=== PATIENT | female | born 1970 | race Caucasian/White ===

== ENCOUNTER 2017-07-17 18:38 | Emergency (ER) | payer OTHER ==
[~2017-07-17] VITALS: Ht 165.1 cm; Wt 51.2 kg
[~2017-07-17 18:38] MED LIST: DURAGESIC100 MCG/HR TOP; ELAVIL25 MG PO; ESTRADIOL TD; FENTANYL TR25 MCG/H1 TOP; FLO4 PO; KEFLEX500 MG PO; LAC PO; LACTULOSE10 GM/152 PO; LINZESS145 MC1 PO; MAC100 PO; MOVANTIK12.5 MG PO; MS CONTIN100 MG PO; MSC100 PO; OXY20 PO; PHENERGAN25 M2 PO; SENOKOT NATURA8.6 M1 PO; ZOF4 PO; [UNRECOGNIZED DRUG - OTHER]
[2017-07-18 02:13] VITALS: BP 126/81
== END 2017-07-18 02:00 | disposition home or self-care (01) ==
LOC: ED 18:38
DX: R10.9 Unspecified abdominal pain (principal); J45.909 Unspecified asthma, uncomplicated; E11.9 Type 2 diabetes mellitus without complications; Z90.710 Acquired absence of both cervix and uterus; Z90.89 Acquired absence of other organs; Z90.49 Acquired absence of other specified parts of digestive tract; Z88.0 Allergy status to penicillin; Z88.1 Allergy status to other antibiotic agents; Z88.6 Allergy status to analgesic agent
CPT/HCPCS: J2270; J2405; J3010; J7030

== ENCOUNTER 2017-08-13 05:28 | Emergency (ER) | payer OTHER ==
[2017-08-13 06:48] LABS: BASOPHIL % 0.5 % (0-2)
[2017-08-13 07:06] LABS: PLATELET COUNT 296 x10^3mcL (130-400)
[2017-08-13 07:16] LABS: CALCIUM 8.7 mg/dL (8.5-10.1); CARBON DIOXIDE 27.3 mmol/L (21-32); CHLORIDE SERUM 105 mmol/L (98-107); CREATININE SERUM 0.6 mg/dL (0.6-1.0); GFR1 > 60 mL/min; GLUCOSE SERUM 101 mg/dL (74-106); POTASSIUM SERUM 3.8 mmol/L (3.5-5.1); SODIUM SERUM 139 mmol/L (136-145)
[2017-08-13 07:47] LABS: UA SPECIFIC GRAVITY <=1.005 (1.005-1.035); microscopic required? YES; urine erythrocyte 1+ (NEGATIVE)
[2017-08-13 08:17] VITALS: BP 114/57
== END 2017-08-13 09:00 | disposition home or self-care (01) ==
LOC: ED 05:28
PROVIDERS: Emergency Medicine
DX: R10.32 Left lower quadrant pain (principal); R03.0 Elevated blood-pressure reading, without diagnosis of hypertension; J45.909 Unspecified asthma, uncomplicated; E11.9 Type 2 diabetes mellitus without complications; Z90.710 Acquired absence of both cervix and uterus; I49.9 Cardiac arrhythmia, unspecified; Z88.6 Allergy status to analgesic agent; Z88.1 Allergy status to other antibiotic agents; Z88.8 Allergy status to other drugs, medicaments and biological substances
CPT/HCPCS: J2270; J2765; J7030

== ENCOUNTER 2017-12-10 10:25 | Inpatient (IN) | payer OTHER ==
[~2017-12-10] VITALS: Ht 165.1 cm; Wt 49.9 kg
[2017-12-10 10:46] VITALS: Ht 165.1 cm; Wt 49.9 kg
[2017-12-10 11:53] LABS: BASOPHIL % 1.1 % (0-2); PLATELET COUNT 289 x10^3mcL (130-400); RED CELL DISTRIBUTION WIDTH 13.4 % (11.5-14.5)
[2017-12-10 11:59] LABS: CALCIUM 8.7 mg/dL (8.5-10.1); CARBON DIOXIDE 22.4 mmol/L (21-32); CHLORIDE SERUM 101 mmol/L (98-107); CREATININE SERUM 0.8 mg/dL (0.6-1.0); GFR1 > 60 mL/min; GLUCOSE SERUM 100 mg/dL (74-106); SODIUM SERUM 134 mmol/L (136-145)
[2017-12-10 12:04] LABS: ALKALINE PHOSPHATASE 50 U/L (46-116); ALT/SGPT 17 U/L (14-59); AST/SGOT 17 U/L (15-37); BILIRUBIN TOTAL 0.28 mg/dL (0.20-1.00); TOTAL PROTEIN, SERUM 7.2 g/dL (6.4-8.2)
[2017-12-10 13:23] LABS: microscopic required? YES; urine erythrocyte 3+ (NEGATIVE)
[2017-12-10] MEDS ORDERED: FENTANYL TR25 MCG/H1 TOP (14:16)
[2017-12-10] MEDS ORDERED: VIVELLE-DO0.025 MG/2 TD (14:17)
[2017-12-10 16:37] LABS: MAGNESIUM 2.3 mg/dL (1.8-2.4); PHOSPHOROUS 3.8 mg/dL (2.5-4.9)
[2017-12-10 16:41] LABS: CHOLESTEROL/HDL RATIO 1.9
[2017-12-10 16:43] LABS: AMPHETAMINE QUAL UR NONE DETECTED (NEG <=1000)
[2017-12-10 18:02] LABS: T3 TOTAL 1.11 ng/mL
[2017-12-10 18:03] LABS: FREE T4 0.93 ng/dL (0.76-1.46); FREE THYROXINE INDEX 2.4 ug/dL (1.4-4.5); T4(THYROXINE) 6.6 ug/dL (4.7-13.3)
[2017-12-10 18:15] VITALS: BP 110/59
[2017-12-10 20:03] LABS: IRON 105 ug/dL (50-170); TOTAL IRON BINDING CAPACITY 333 ug/dL (250-450)
[2017-12-11 09:21] VITALS: BP 101/50
[2017-12-11 12:54] VITALS: BP 88/53
[2017-12-11 13:28] LABS: BASOPHIL % 0.7 % (0-2); PLATELET COUNT 288 x10^3mcL (130-400)
[2017-12-11 13:50] LABS: RED BLOOD CELLS 3.44 M/mm3 (4.10-5.10)
[2017-12-11 13:51] LABS: CALCIUM 8.3 mg/dL (8.5-10.1); CARBON DIOXIDE 25.4 mmol/L (21-32); CHLORIDE SERUM 103 mmol/L (98-107); CREATININE SERUM 0.7 mg/dL (0.6-1.0); GFR1 > 60 mL/min; GLUCOSE SERUM 80 mg/dL (74-106); MAGNESIUM 2.2 mg/dL (1.8-2.4); PHOSPHOROUS 4.8 mg/dL (2.5-4.9); POTASSIUM SERUM 4.4 mmol/L (3.5-5.1); SODIUM SERUM 138 mmol/L (136-145)
[2017-12-11 16:31] VITALS: BP 92/55
[2017-12-11 19:40] VITALS: BP 101/52
[2017-12-12 05:32] VITALS: BP 110/65
[2017-12-12 08:50] VITALS: BP 114/71
[2017-12-12 16:12] VITALS: BP 115/66
[2017-12-12 20:45] VITALS: BP 97/57
[2017-12-13 05:35] VITALS: BP 106/56
[2017-12-13 09:39] VITALS: BP 93/50
[2017-12-13 10:11] VITALS: BP 90/59
[2017-12-13] MEDS ORDERED: ROBAXIN500 MG PO (13:52)
[2017-12-13 17:39] VITALS: BP 107/65
[2017-12-13 17:59] VITALS: BP 107/65
== END 2017-12-13 19:26 | disposition home or self-care (01) | DRG 563 ==
LOC: ED 10:25 → DU 14:44 → MU 12-11 19:01
PROVIDERS: Emergency Medicine; Family Medicine
DX: S39.012A Strain of muscle, fascia and tendon of lower back, initial encounter (principal); N10 Acute pyelonephritis; E87.1 Hypo-osmolality and hyponatremia; Z88.8 Allergy status to other drugs, medicaments and biological substances; J45.909 Unspecified asthma, uncomplicated; Z90.710 Acquired absence of both cervix and uterus; Z90.49 Acquired absence of other specified parts of digestive tract; Z82.49 Family history of ischemic heart disease and other diseases of the circulatory system; Z80.9 Family history of malignant neoplasm, unspecified; D64.9 Anemia, unspecified; E83.51 Hypocalcemia; K58.9 Irritable bowel syndrome, unspecified; G43.909 Migraine, unspecified, not intractable, without status migrainosus; R31.9 Hematuria, unspecified
CPT/HCPCS: 83880; 84439; J0696; J0780; J1100; J1200; J1642; J2270; J2550; J2800; J7030; Q0092; Q0169

== ENCOUNTER 2018-03-07 17:03 | Inpatient (IN) | payer OTHER ==
[~2018-03-07] VITALS: Ht 165.1 cm; Wt 51.9 kg
[~2018-03-07 17:03] MED LIST changes: +ROBAXIN500 MG PO; +VIVELLE-DO0.025 MG/2 TD
[2018-03-07 18:42] LABS: BASOPHIL % 0.6 % (0-2); PLATELET COUNT 272 x10^3mcL (130-400); RED CELL DISTRIBUTION WIDTH 13.8 % (11.5-14.5)
[2018-03-07 18:53] LABS: ALKALINE PHOSPHATASE 61 U/L (46-116); ALT/SGPT 8 U/L (14-59); AST/SGOT 15 U/L (15-37); BILIRUBIN TOTAL 0.24 mg/dL (0.20-1.00); CALCIUM 8.4 mg/dL (8.5-10.1); CARBON DIOXIDE 28.7 mmol/L (21-32); CHLORIDE SERUM 96 mmol/L (98-107); CREATININE SERUM 0.9 mg/dL (0.6-1.0); GFR1 > 60 mL/min; GLUCOSE SERUM 83 mg/dL (74-106); LIPASE 125 IU/L (73-393); SODIUM SERUM 131 mmol/L (136-145); TOTAL PROTEIN, SERUM 7.2 g/dL (6.4-8.2)
[2018-03-07 18:55] LABS: POTASSIUM SERUM 2.6 mmol/L (3.5-5.1)
[2018-03-07 19:45] LABS: T3 TOTAL 1.14 ng/mL
[2018-03-07 19:51] LABS: CHOLESTEROL/HDL RATIO 1.9; MAGNESIUM 2.4 mg/dL (1.8-2.4); PHOSPHOROUS 3.4 mg/dL (2.5-4.9)
[2018-03-07 19:57] VITALS: BP 103/68
[2018-03-07 20:04] LABS: FREE T4 1.15 ng/dL (0.76-1.46); FREE THYROXINE INDEX 3.6 ug/dL (1.4-4.5); T4(THYROXINE) 10.6 ug/dL (4.7-13.3)
[2018-03-08 06:48] VITALS: BP 88/57
[2018-03-08 08:09] LABS: BASOPHIL % 0.7 % (0-2); PLATELET COUNT 270 x10^3mcL (130-400); RED CELL DISTRIBUTION WIDTH 13.8 % (11.5-14.5)
[2018-03-08 08:21] LABS: CALCIUM 8.1 mg/dL (8.5-10.1); CARBON DIOXIDE 28.5 mmol/L (21-32); CHLORIDE SERUM 105 mmol/L (98-107); CREATININE SERUM 0.6 mg/dL (0.6-1.0); GFR1 > 60 mL/min; GLUCOSE SERUM 82 mg/dL (74-106); MAGNESIUM 2.4 mg/dL (1.8-2.4); PHOSPHOROUS 2.5 mg/dL (2.5-4.9); POTASSIUM SERUM 4.1 mmol/L (3.5-5.1); SODIUM SERUM 137 mmol/L (136-145)
[2018-03-08 08:42] VITALS: BP 100/46
[2018-03-08 13:15] VITALS: BP 91/54
[2018-03-08 17:30] VITALS: BP 104/64
[2018-03-08 17:45] VITALS: BP 104/64; BP 71/32
[2018-03-08 21:54] VITALS: BP 102/60
[2018-03-09 05:21] VITALS: BP 120/63
[2018-03-09 05:51] LABS: CALCIUM 8.2 mg/dL (8.5-10.1); CARBON DIOXIDE 24.7 mmol/L (21-32); CHLORIDE SERUM 107 mmol/L (98-107); CREATININE SERUM 0.7 mg/dL (0.6-1.0); GFR1 > 60 mL/min; GLUCOSE SERUM 120 mg/dL (74-106); POTASSIUM SERUM 4.1 mmol/L (3.5-5.1); SODIUM SERUM 139 mmol/L (136-145)
[2018-03-09 07:03] LABS: BASOPHIL % 0.3 % (0-2); PLATELET COUNT 282 x10^3mcL (130-400); RED CELL DISTRIBUTION WIDTH 14.4 % (11.5-14.5)
[2018-03-09 09:22] VITALS: BP 96/50
[2018-03-09 10:37] VITALS: BP 96/60
[2018-03-09 13:29] VITALS: BP 89/53
[2018-03-09 17:29] VITALS: BP 96/57
[2018-03-09 20:22] VITALS: BP 88/42
[2018-03-10 05:25] VITALS: BP 90/51
[2018-03-10 06:24] LABS: BASOPHIL % 0.7 % (0-2); PLATELET COUNT 236 x10^3mcL (130-400); RED CELL DISTRIBUTION WIDTH 14.3 % (11.5-14.5)
[2018-03-10 06:49] LABS: CALCIUM 7.9 mg/dL (8.5-10.1); CARBON DIOXIDE 27.4 mmol/L (21-32); CHLORIDE SERUM 112 mmol/L (98-107); CREATININE SERUM 0.6 mg/dL (0.6-1.0); GFR1 > 60 mL/min; GLUCOSE SERUM 80 mg/dL (74-106); MAGNESIUM 2.2 mg/dL (1.8-2.4); PHOSPHOROUS 2.6 mg/dL (2.5-4.9); POTASSIUM SERUM 3.8 mmol/L (3.5-5.1); SODIUM SERUM 144 mmol/L (136-145)
[2018-03-10 09:45] VITALS: BP 105/62
[2018-03-10 12:59] VITALS: BP 101/47
[2018-03-10 17:48] VITALS: BP 94/40
[2018-03-10 18:17] VITALS: BP 101/46
[2018-03-10 21:54] VITALS: BP 111/61
[2018-03-11 05:29] VITALS: BP 106/59
[2018-03-11 07:05] LABS: BASOPHIL % 0.7 % (0-2); PLATELET COUNT 258 x10^3mcL (130-400)
[2018-03-11 07:09] LABS: RED CELL DISTRIBUTION WIDTH 14.9 % (11.5-14.5)
[2018-03-11 07:12] LABS: CALCIUM 7.9 mg/dL (8.5-10.1); CARBON DIOXIDE 27.1 mmol/L (21-32); CHLORIDE SERUM 112 mmol/L (98-107); CREATININE SERUM 0.8 mg/dL (0.6-1.0); GFR1 > 60 mL/min; GLUCOSE SERUM 103 mg/dL (74-106); MAGNESIUM 1.9 mg/dL (1.8-2.4); PHOSPHOROUS 3.3 mg/dL (2.5-4.9); POTASSIUM SERUM 3.5 mmol/L (3.5-5.1); SODIUM SERUM 143 mmol/L (136-145)
[2018-03-11 08:57] VITALS: BP 80/46
[2018-03-11 10:32] VITALS: BP 80/46
[2018-03-11 11:08] VITALS: BP 90/48
== END 2018-03-11 11:53 | disposition home or self-care (01) | DRG 388 ==
LOC: ED 17:03 → DU 18:55
PROVIDERS: Emergency Medicine; Family Medicine
PROC: 02HV33Z Insertion of Infusion Device into Superior Vena Cava, Percutaneous Approach (ICD-10-PCS; principal; 2018-03-07)
PROC: B548ZZA Ultrasonography of Superior Vena Cava, Guidance (ICD-10-PCS; 2018-03-07)
DX: K56.699 Other intestinal obstruction unspecified as to partial versus complete obstruction (principal); N17.0 Acute kidney failure with tubular necrosis; E87.1 Hypo-osmolality and hyponatremia; K57.90 Diverticulosis of intestine, part unspecified, without perforation or abscess without bleeding; E87.6 Hypokalemia; E87.8 Other disorders of electrolyte and fluid balance, not elsewhere classified; D64.9 Anemia, unspecified; R73.03 Prediabetes; Z90.49 Acquired absence of other specified parts of digestive tract; Z90.710 Acquired absence of both cervix and uterus; Z88.6 Allergy status to analgesic agent; Z88.1 Allergy status to other antibiotic agents; Z88.5 Allergy status to narcotic agent; Z88.8 Allergy status to other drugs, medicaments and biological substances; Z90.722 Acquired absence of ovaries, bilateral; Z82.49 Family history of ischemic heart disease and other diseases of the circulatory system; Z85.9 Personal history of malignant neoplasm, unspecified; Z87.891 Personal history of nicotine dependence
CPT/HCPCS: 83880; 84439; J1642; J1885; J2060; J2270; J2550; J2920; J2930; J3480; J7030; J8597; Q0092; Q9967

== ENCOUNTER 2018-03-20 10:00 | Emergency (ER) | payer OTHER ==
[~2018-03-20] VITALS: Ht 165.1 cm; Wt 51.7 kg
[2018-03-20 10:12] VITALS: Ht 165.1 cm; Wt 51.7 kg
[2018-03-20 11:24] LABS: BASOPHIL % 0.5 % (0-2); PLATELET COUNT 358 x10^3mcL (130-400); RED CELL DISTRIBUTION WIDTH 14.1 % (11.5-14.5)
[2018-03-20 11:29] LABS: microscopic required? YES; urine erythrocyte 1+ (NEGATIVE)
[2018-03-20 11:31] LABS: CARBON DIOXIDE 29.4 mmol/L (21-32); CHLORIDE SERUM 112 mmol/L (98-107); CREATININE SERUM 0.8 mg/dL (0.6-1.0); GFR1 > 60 mL/min; GLUCOSE SERUM 85 mg/dL (74-106); POTASSIUM SERUM 3.4 mmol/L (3.5-5.1); SODIUM SERUM 140 mmol/L (136-145)
[2018-03-20 11:36] LABS: ALBUMIN 4.1 g/dL (3.4-5.0); ALKALINE PHOSPHATASE 66 U/L (46-116); ALT/SGPT 10 U/L (14-59); AST/SGOT 15 U/L (15-37); BILIRUBIN TOTAL 0.3 mg/dL (0.20-1.00); LIPASE 111 IU/L (73-393); TOTAL PROTEIN, SERUM 7.5 g/dL (6.4-8.2)
[2018-03-20 15:07] LABS: T3 TOTAL 0.99 ng/mL
[2018-03-20 15:12] LABS: FREE T4 0.83 ng/dL (0.76-1.46); FREE THYROXINE INDEX 2.2 ug/dL (1.4-4.5); T4(THYROXINE) 7.2 ug/dL (4.7-13.3)
[2018-03-20 15:28] LABS: CHOLESTEROL/HDL RATIO 2.4; MAGNESIUM 2.2 mg/dL (1.8-2.4); PHOSPHOROUS 3.2 mg/dL (2.5-4.9)
[2018-03-20 19:20] LABS: AMPHETAMINE QUAL UR NONE DETECTED (NEG <=1000)
[2018-03-21 03:02] VITALS: BP 92/56
== END 2018-03-21 03:02 | disposition home or self-care (01) ==
LOC: ED 10:00
PROVIDERS: Emergency Medicine; Family Medicine
DX: R10.32 Left lower quadrant pain (principal); R11.10 Vomiting, unspecified; J45.909 Unspecified asthma, uncomplicated; Z88.6 Allergy status to analgesic agent; Z88.8 Allergy status to other drugs, medicaments and biological substances; Z88.0 Allergy status to penicillin; Z88.1 Allergy status to other antibiotic agents; Z88.5 Allergy status to narcotic agent; Z90.710 Acquired absence of both cervix and uterus
CPT/HCPCS: 83880; 84439; J2175; J2270; J2550; J2765; J7030; Q0092; Q9966

== ENCOUNTER 2018-05-10 06:53 | Emergency (ER) | payer OTHER ==
[~2018-05-10] VITALS: Ht 165.1 cm; Wt 49.9 kg
[2018-05-10 07:02] VITALS: Ht 165.1 cm; Wt 49.9 kg
[2018-05-10 08:08] LABS: UA SPECIFIC GRAVITY >=1.030 (1.005-1.035); microscopic required? YES; urine erythrocyte 3+ (NEGATIVE)
[2018-05-10 08:17] LABS: BASOPHIL % 0.4 % (0-2); PLATELET COUNT 348 x10^3mcL (130-400); RED CELL DISTRIBUTION WIDTH 13.7 % (11.5-14.5)
[2018-05-10 08:25] LABS: CALCIUM 9.6 mg/dL (8.5-10.1); CARBON DIOXIDE 26.2 mmol/L (21-32); CHLORIDE SERUM 93 mmol/L (98-107); CREATININE SERUM 1.1 mg/dL (0.6-1.0); GFR1 57 mL/min; GLUCOSE SERUM 108 mg/dL (74-106); POTASSIUM SERUM 3.4 mmol/L (3.5-5.1); SODIUM SERUM 129 mmol/L (136-145)
[2018-05-10 08:39] LABS: ALBUMIN 4.6 g/dL (3.4-5.0); ALKALINE PHOSPHATASE 76 U/L (46-116); ALT/SGPT 17 U/L (14-59); AST/SGOT 27 U/L (15-37); BILIRUBIN TOTAL 0.19 mg/dL (0.20-1.00); FREE T4 1.24 ng/dL (0.76-1.46); LIPASE 134 IU/L (73-393)
[2018-05-10 09:00] LABS: TOTAL PROTEIN, SERUM 8.6 g/dL (6.4-8.2)
[2018-05-10 13:14] VITALS: BP 105/65
[2018-05-10 18:58] LABS: AMPHETAMINE QUAL UR NONE DETECTED (See below)
== END 2018-05-10 13:14 | disposition home or self-care (01) ==
LOC: ED 06:53
PROVIDERS: Emergency Medicine
DX: R11.10 Vomiting, unspecified (principal); E86.0 Dehydration; R00.2 Palpitations; J45.909 Unspecified asthma, uncomplicated; Z88.8 Allergy status to other drugs, medicaments and biological substances; Z88.0 Allergy status to penicillin; Z88.1 Allergy status to other antibiotic agents; Z88.5 Allergy status to narcotic agent; Z88.6 Allergy status to analgesic agent; Z90.710 Acquired absence of both cervix and uterus
CPT/HCPCS: 83880; 84439; G0480; J2765; J3475; J3490; J7030

== ENCOUNTER 2018-06-05 14:12 | Emergency (ER) | payer OTHER ==
[~2018-06-05] VITALS: Ht 165.1 cm; Wt 49.0 kg
[2018-06-05 14:16] VITALS: BP 121/87; Ht 165.1 cm; Wt 49.0 kg
[2018-06-05 14:49] LABS: BASOPHIL % 0.5 % (0-2); PLATELET COUNT 325 x10^3mcL (130-400); RED CELL DISTRIBUTION WIDTH 13.8 % (11.5-14.5)
[2018-06-05 14:53] LABS: CALCIUM 9.4 mg/dL (8.5-10.1); CARBON DIOXIDE 21.8 mmol/L (21-32); CREATININE SERUM 1.3 mg/dL (0.6-1.0); POTASSIUM SERUM 3.4 mmol/L (3.5-5.1)
[2018-06-05 14:57] LABS: ALBUMIN 4.8 g/dL (3.4-5.0); BILIRUBIN TOTAL 0.3 mg/dL (0.20-1.00); MAGNESIUM 2.3 mg/dL (1.8-2.4)
[2018-06-05 15:01] LABS: TOTAL PROTEIN, SERUM 8.5 g/dL (6.4-8.2)
== END 2018-06-05 16:08 | disposition home or self-care (01) ==
LOC: ED 14:12
PROVIDERS: Emergency Medicine
DX: E87.1 Hypo-osmolality and hyponatremia (principal); J45.909 Unspecified asthma, uncomplicated; I49.9 Cardiac arrhythmia, unspecified; Z90.710 Acquired absence of both cervix and uterus
CPT/HCPCS: 36415; J7030